=== PATIENT | female | born 1940 ===

== ENCOUNTER 2017-03-18 19:31 | Emergency (ER) | payer MEDICARE, OTHER ==
[2017-03-18 20:58] VITALS: BP 146/84; PULSE 76; RESP 20; TEMP 100.2; O2SAT 97
--- NOTE | 2017-03-18 21:10 | C.PDOC ---
History Of Present Illness 77 year old female with prior Hx of asthma presents to the ED after her PMD prescribed her some medicine for flu like symptoms and she had an allergic reaction to one of them at approximately 16:30. Patient is currently taking medications for HTN and was prescribed antiemetic medication . She associates her symptoms with vomit, nausea, sneezing, throat pain. Denies known sick contacts, recent travel outside the [place], any other medical issues. Chief Complaint (Nursing): Weakness/Neurological Deficit History Per: Patient History/Exam Limitations: no limitations Onset/Duration Of Symptoms: Hrs Current Symptoms Are (Timing): Still Present Possible Causative Factor(s): New Medications Fall Associated With With Symptoms: No Recent travel outside of the [place]: No Additional History Per: Patient Past Medical History Reviewed: Historical Data, Nursing Documentation, Vital Signs Vital Signs: Last Vital Signs Temp 100.2 F H 03/18/17 20:57 Pulse 76 03/18/17 20:57 Resp 20 03/18/17 20:57 BP 146/84 03/18/17 20:57 Pulse Ox 97 03/19/17 01:21 - Medical History PMH: Arthritis, Asthma, Diabetes, Diverticulitis, HTN, Hypercholesterolemia Denies: Chronic Kidney Disease Surgical History: Endoscopy - [facility] Procedures COLONOSCOPY (11/28/13) Family History: States: Unknown Family Hx - Social History Hx Tobacco Use: No Hx Alcohol Use: No Hx Substance Use: No - Immunization History Hx Tetanus Toxoid Vaccination: No Hx Influenza Vaccination: Yes Hx Pneumococcal Vaccination: No Review Of Systems Constitutional: Negative for: Fever, Chills Eyes: Negative for: Vision Change Cardiovascular: Negative for: Chest Pain, Palpitations Respiratory: Positive for: Cough Gastrointestinal: Positive for: Vomiting. Negative for: Nausea, Diarrhea Physical Exam - Physical Exam Appears: Non-toxic, No Acute Distress Skin: Normal Color, Warm, Dry Head: Atraumatic, Normacephalic Nose: Normal, No Discharge Oral Mucosa: Moist Throat: Normal, Other (oropharynx unremarkable ) Neck: Normal, Supple Chest: Symmetrical, No Tenderness Cardiovascular: Rhythm Regular Respiratory: Normal Breath Sounds Neurological/Psych: Oriented x3, Normal Speech, Normal Cognition ED Course And Treatment O2 Sat by Pulse Oximetry: 97 (On RA) Pulse Ox Interpretation: Normal Medical Decision Making Medical Decision Making: Impression: 77 y/o female presents after her medication for flu gave her an allergic reaction Plan : * Tamiflu 75 mg PO Patient was treated with a different medication for her cold/flu and felt much better on reevaluation and was able to be discharged home. Disposition - Disposition Referrals: [facility] at [facility] [Outside] Disposition: HOME/ ROUTINE Disposition Time: 21:08 Condition: GOOD Prescriptions: Oseltamivir Phosphate [Tamiflu] 75 mg PO BID #10 capsule Instructions: Influenza (ED) Forms: [facility] (Yi), Gen Discharge Inst Georgian Print Language: JAMAICAN - Clinical Impression Clinical Impression: Flu syndrome - Scribe Statement The provider has reviewed the documentation as recorded by the Scribe Colt Cardenas All medical record entries made by the Scribe were at my direction and personally dictated by me. I have reviewed the chart and agree that the record accurately reflects my personal performance of the history, physical exam, medical decision making, and the department course for this patient. I have also personally directed, reviewed, and agree with the discharge instructions and disposition.
== END 2017-03-18 21:31 | disposition home or self-care (01) ==
LOC: C.ER 19:31
DX: J11.1 Influenza due to unidentified influenza virus with other respiratory manifestations (principal)

== ENCOUNTER 2017-11-03 05:58 | Day surgery (SDC) | payer MEDICARE, OTHER ==
[2017-11-03 06:57] VITALS: TEMP 97.5
[2017-11-03] MEDS ORDERED: Propofol 10 mg/ml Inj (20 ML) ONE (08:02)
--- NOTE | 2017-11-03 08:17 | CP.SDSHP ---
Same Day Surgery H & P - History Proposed Procedure: colonoscopy Pre-Op Diagnosis: screening - Previous Medical/Surgical History Cardiac: Hypertension Endocrine/Metabolic: Diabetes - Allergies Allergies: Allergies No Known Allergies Allergy (Verified 12/04/15 11:11) - Physical Exam Vital Signs: Vital Signs 11/03/17 06:50 Temperature 97.5 F L Pulse Rate 80 Respiratory 20 Rate Blood Pressure 160/78 H O2 Sat by Pulse 99 Oximetry Mental Status: Alert & Oriented x3 Neuro: WNL Heart: WNL Lungs: WNL GI: WNL - {Optional Preform as Required} Abdomen: WNL - Impression Impression: screen Pt. Evaluated Today:Candidate for Anesthesia & Procedure: Yes - Date & Time Date: 11/03/17 Time: 08:05 Short Stay Discharge - Short Stay Discharge Admitting Diagnosis/Reason for Visit: ENCOUNTER FOR SCREENING FOR MALIGNANT NEOPLASM OF Disposition: HOME/ ROUTINE
[2017-11-03] MEDS ORDERED: Lactated Ringer's 1,000 ML IV ONE (08:20)
[2017-11-03 09:56] VITALS: O2SAT 98
[2017-11-03 09:58] VITALS: BP 159/70; PULSE 81; RESP 17
== END 2017-11-03 09:56 | disposition home or self-care (01) ==
LOC: C.ENDO 05:58
PROVIDERS: ATTEND Internal Medicine Gastroenterology
DX: Z12.11 Encounter for screening for malignant neoplasm of colon (principal); D12.2 Benign neoplasm of ascending colon; D12.3 Benign neoplasm of transverse colon; K57.90 Diverticulosis of intestine, part unspecified, without perforation or abscess without bleeding; I10 Essential (primary) hypertension; E11.9 Type 2 diabetes mellitus without complications
CPT/HCPCS: 45380; 45385; 82948; 88305; J2001; J2704; J7120

== ENCOUNTER 2018-04-07 13:32 | Emergency (ER) | payer MEDICARE, OTHER ==
[2018-04-07 13:39] VITALS: O2SAT 100
--- NOTE | 2018-04-07 13:55 | C.PDOC ---
History Of Present Illness 78 y/o female with history of DM, HTN, Asthma and High cholesterol sent to ED by PMD for evaluation of abdominal pain for 3 weeks worsen last night. Patient sent to ED with note to have CT scan of abdomen/pelvis and Ultrasound. Patient denies fever, chills, nausea, vomiting, diarrhea, bloody or dark stool, dysuria, vaginal discharge, back pain, dysuria or any other complaints at this time. PMD: Dr. Mayo, H Time Seen by Provider: 04/07/18 13:46 Chief Complaint (Nursing): Abdominal Pain History Per: Patient History/Exam Limitations: no limitations Onset/Duration Of Symptoms: Days Current Symptoms Are (Timing): Still Present Location Of Pain/Discomfort: RLQ, LLQ Past Medical History Reviewed: Historical Data, Nursing Documentation, Vital Signs Vital Signs: Last Vital Signs Temp 97.9 F 04/07/18 13:34 Pulse 82 04/07/18 13:34 Resp 18 04/07/18 13:34 BP 179/83 H 04/07/18 13:34 Pulse Ox 100 04/07/18 13:34 - Medical History PMH: Arthritis, Asthma, Diabetes, Diverticulitis, HTN, Hypercholesterolemia Surgical History: Endoscopy - [facility] Procedures COLONOSCOPY (11/28/13) Family History: States: No Known Family Hx - Social History Hx Tobacco Use: No Hx Alcohol Use: No Hx Substance Use: No - Immunization History Hx Tetanus Toxoid Vaccination: No Hx Influenza Vaccination: Yes Hx Pneumococcal Vaccination: Yes Review Of Systems Constitutional: Negative for: Fever, Chills Gastrointestinal: Positive for: Abdominal Pain. Negative for: Nausea, Vomiting, Diarrhea, Hematemesis Genitourinary: Negative for: Dysuria, Hematuria, Vaginal Discharge Musculoskeletal: Negative for: Back Pain Physical Exam - Physical Exam Appears: Non-toxic, No Acute Distress Skin: Warm, Dry, No Rash Head: Atraumatic, Normacephalic Eye(s): bilateral: Normal Inspection Oral Mucosa: Moist Neck: Supple Cardiovascular: Rhythm Regular Respiratory: Normal Breath Sounds, No Rales, No Rhonchi, No Wheezing Gastrointestinal/Abdominal: Soft, Tenderness (RLQ and LLQ), No Guarding, No Rebound Back: No CVA Tenderness Extremity: Normal ROM, No Pedal Edema, Capillary Refill (<2 seconds) Neurological/Psych: Oriented x3, Normal Speech, Normal Cognition ED Course And Treatment - Laboratory Results Result Diagrams: 04/07/18 14:39 04/07/18 14:39 O2 Sat by Pulse Oximetry: 100 (RA) Pulse Ox Interpretation: Normal Medical Decision Making Medical Decision Making: Sent in by PMD for eval for abdominal pain: requests CT abd pelvis and TVUS. Pt denies any pelvic pain or abnl discharge. Plan: Blood work, UA, Transvaginal US, CT abd/pelvis, ECG ordered. IV fluids administered ECG: NSR @75BPM, NO STEMI Transvaginal US IMPRESSION: Status post total hysterectomy. No adnexal mass or cyst. No free fluid in the pelvis. Progress: Offered patient pain medication, states PMD gave injection for pain [employer]. CT: w/ diverituclitis, informed pt. also informed pt regarding adrenal findings which she notes she knows about. 1720 non-elevated WBC, pt in NAD, clear for d/c home. given abx, return indications and f/u. Disposition - Disposition Referrals: [facility] at [facility] [Outside] Asim Mayo MD [Staff Provider] - Brett Dangelo MD [Staff Provider] - Disposition: HOME/ ROUTINE Disposition Time: 17:18 Condition: GOOD Additional Instructions: SARTHAK NELSON, thank you for letting us take care of you today. Your provider was Lauro Solares and you were treated for SENT BY PMD. The emergency medical care you received today was directed at your acute symptoms. If you were prescribed any medication, please fill it and take as directed. It may take several days for your symptoms to resolve. Return to the Emergency Department if your symptoms worsen, do not improve, or if you have any other problems. Please contact your doctor or call one of the physicians/clinics you have been referred to that are listed on the Patient Visit Information form that is included in your discharge packet. Bring any paperwork you were given at [facility] with you along with any medications you are taking to your follow up visit. Our treatment cannot replace ongoing medical care by a primary care provider outside of the emergency department. Thank you for allowing the [facility] team to be part of your care today. If you had an X-Ray or CT scan: A Radiologist will review the ED reading if any change in treatment is needed we will contact you. If you had a blood, urine, or wound culture: It will take several days for the results, if any change in treatment is needed we will contact you. If you had an STI test: It will take 48 hours for the results. Please call after 1 week if you have not heard back. Prescriptions: RX: Ciprofloxacin [Cipro] 500 mg PO BID #28 tab Metronidazole [Flagyl] 500 mg PO TID 14 Days #42 tab Instructions: Diverticulitis (DC) Forms: [employer] (Kazakh) - Clinical Impression Clinical Impression: Diverticulitis - Scribe Statement The provider has reviewed the documentation as recorded by the Edinsonibdayday Villafana All medical record entries made by the Bertin were at my direction and personally dictated by me. I have reviewed the chart and agree that the record accurately reflects my personal performance of the history, physical exam, medical decision making, and the department course for this patient. I have also personally directed, reviewed, and agree with the discharge instructions and disposition.
[2018-04-07] MEDS ORDERED: Sodium Chloride 0.9% 1,000 ML ONE ×2 (14:08→14:44)
[2018-04-07] MEDS ORDERED: Sodium Chloride 0.9% 1,000 ML IV SCH (14:30)
[2018-04-07 14:44] LABS: BASO # 0.1 K/uL (0.0-0.2); BASO % 0.7 % (0.0-2.0); EOS % 0.5 % (0.0-4.0); LYMPH # 2.6 K/uL (1.0-4.3); LYMPH % 26.1 % (20.0-40.0); MEAN CELL VOLUME 88.8 fL (81.0-99.0); MEAN CORPUSCULAR HEMOGLOBIN 29.1 pg (27.0-31.0); MEAN CORPUSCULAR HGB CONC 32.8 g/dL (33.0-37.0); MEAN PLATELET VOLUME 9.4 fL (7.2-11.7); MONO # 0.8 K/uL (0.0-0.8); NEUT # 6.4 K/uL (1.8-7.0); NEUT % 64.7 % (50.0-75.0); RBC 3.78 Mil/uL (3.80-5.20); RED CELL DISTRIBUTION WIDTH 17.2 % (11.5-14.5); WHITE BLOOD COUNT 9.8 K/uL (4.8-10.8)
[2018-04-07 15:00] LABS: SQUAMOUS EPITHIAL 1 /hpf (0-5); URINE BACTERIA RARE (<OCC); URINE BILIRUBIN NEGATIVE (NEGATIVE); URINE BLOOD NEGATIVE (NEGATIVE); URINE CLARITY Clear (Clear); URINE COLOR Yellow (YELLOW); URINE GLUCOSE (UA) NORMAL (Normal); URINE LEUKOCYTE ESTERASE NEG Leu/uL (Negative); URINE PROTEIN NEGATIVE (NEGATIVE); URINE UROBILINOGEN NORMAL mg/dL (0.2-1.0)
[2018-04-07 15:13] LABS: BLOOD UREA NITROGEN 14 mg/dL (7-17); CALCIUM 9.2 mg/dl (8.6-10.4); GFR NON-AFRICAN AMERICAN > 60; LIPASE 77 U/L (23-300)
[2018-04-07 15:21] LABS: ALB/GLOB RATIO 1.1 (1.0-2.1); ALBUMIN 4.4 g/dL (3.5-5.0); ALT/SGPT 12 U/L (9-52); AST/SGOT 34 U/L (14-36)
[2018-04-07] MEDS ORDERED: Iohexol 300 100 ML IJ ONE (15:38)
--- NOTE | 2018-04-07 16:41 | US ---
Date of service: 04/07/2018 HISTORY: Abdominal pain COMPARISON: None available. TECHNIQUE: Transabdominal and transvaginal pelvic ultrasound was performed FINDINGS: UTERUS: The uterus is surgically absent. RIGHT OVARY: No adnexal mass. LEFT OVARY: No adnexal mass. FREE FLUID: No significant free fluid noted. OTHER FINDINGS: None. IMPRESSION: Status post total hysterectomy. No adnexal mass or cyst. No free fluid in the pelvis.
--- NOTE | 2018-04-07 17:12 | CT ---
Date of service: 04/07/2018 PROCEDURE: CT Abdomen and Pelvis. HISTORY: Abdominal pain in a patient with history of hysterectomy COMPARISON: Comparison made with prior CT scan abdomen and pelvis dated 05/05/2015 TECHNIQUE: Contiguous axial images of the abdomen and pelvis. Oral contrast was administered. No IV contrast given. Coronal and Sagittal reformats generated. Radiation dose: Total exam DLP = 1068.24 mGy-cm. This CT exam was performed using one or more of the following dose reduction techniques: Automated exposure control, adjustment of the mA and/or kV according to patient size, and/or use of iterative reconstruction technique. FINDINGS: LOWER THORAX: Mild passive/dependent type atelectasis both posterior lower lung zones. There also appears to be some linear atelectasis or scarring left lingular region. There is a small pericardial effusion. Heart size is within range of normal. LIVER: Exhibits normal size. Mild diffuse fatty hepatic infiltration. Redemonstrated is a punctate calcification in the gerald hepatis region. No obvious hepatic mass or collection. Portal and splenic veins are opacified. GALLBLADDER AND BILE DUCTS: Unremarkable. No stones seen. No gross intra or extrahepatic biliary ductal dilatation PANCREAS: Pancreas is atrophic and fatty replaced. No pancreatic masses or collections.. SPLEEN: Spleen exhibits normal size and attenuation pattern without mass collection or calcification. 2 tiny splenules are again adjacent to the posterior inferior margin of the main body of the spleen. ADRENALS: 15 mm left adrenal nodule essentially unchanged from prior study.. KIDNEYS AND URETERS: Kidneys demonstrate relatively symmetric nephrograms.. There is mild dilatation and/or columnization of the left ureter of the etiology. No evidence of nephrolithiasis or ureteral calculi... Small approximately 9.6 mm low-attenuation lesion seen in the medial aspect of the cortex mid pole left kidney that exhibits Hounsfield units in the low 20s. This could represent small hyperdense cyst.. This focus appears to have increased in size slightly. Follow-up renal ultrasound could confirm. BLADDER: Urinary bladder is incompletely distended which in part accounts for thick-walled appearance. Correlation with urinalysis recommended to exclude cystitis REPRODUCTIVE: Hysterectomy APPENDIX: Normal-appearing appendix. BOWEL: Evaluation of the bowel is somewhat limited due to the lack of oral contrast material. The stomach is incompletely distended which in part accounts for thick-walled appearance. Rule out gastritis. Visualized loops of small bowel exhibit normal contour and caliber. No evidence of acute mechanical small bowel obstruction. There is a moderate amount of stool seen within the cecum and ascending as well as most of the transverse colon suggesting mild fecal retention/constipation. There are multiple colonic diverticula again seen along the sigmoid and to a lesser degree descending colon on. There is localized wall thickening of a short segment of the distal descending/sigmoid colon junction with infiltration changes in the surrounding mesentery. Findings most likely represent consistent with acute diverticulitis. Note however that the possibility of another on intrinsic/invasive wall lesion including but not limited to colon carcinoma not excluded.. Follow-up of CT scan following treatment could be performed to assess for resolution. PERITONEUM: Unremarkable. No fluid collection. No free air. LYMPH NODES: Unremarkable. No enlarged lymph nodes. VASCULATURE: Unremarkable. No aortic aneurysm. N mild aortic atherosclerotic calcification or mural plaque present. BONES: Mild multilevel degenerative spondylosis of the lower thoracic and lumbar spine. There are no acute compression fractures no retropulsed fragments. OTHER FINDINGS: None. IMPRESSION: Diverticulosis with additional findings consistent with acute diverticulitis involving short segment of the distal descending/sigmoid colon junction. Mild fatty hepatic infiltration.. Mild dilatation and/or columnization of the left ureter. 15 mm left adrenal nodule again noted essentially unchanged from prior exam Probable small hyperdense cyst right kidney slightly increased from prior exam. Follow-up renal ultrasound could be performed confirm. Small pericardial effusion. See above discussion for additional details and findings. Note that these findings were discussed with Dr. Solares at approximately 4:50 p.m. with written down and read back verification.
[2018-04-07 17:36] VITALS: BP 142/64; PULSE 75; RESP 20; TEMP 98
== END 2018-04-07 17:36 | disposition home or self-care (01) ==
LOC: C.ER 13:32
DX: K57.32 Diverticulitis of large intestine without perforation or abscess without bleeding (principal)
CPT/HCPCS: 74177; 76830; 80053; 81001; 83690; 85025; 99285; J7030; Q9967